=== PATIENT | male | born 1975 | race Caucasian/White ===

== ENCOUNTER 2020-05-31 10:35 | Emergency (ER) | payer OTHER ==
[~2020-05-31] VITALS: Ht 170.2 cm; Wt 77.3 kg
[2020-05-31 11:01] VITALS: BP 133/90
== END 2020-05-31 11:40 | disposition left against medical advice (07) ==
LOC: EMS 10:37
DX: R09.02 Hypoxemia (principal); T50.7X1A Poisoning by analeptics and opioid receptor antagonists, accidental (unintentional), initial encounter; Y92.89 Other specified places as the place of occurrence of the external cause
CPT/HCPCS: 93005; Z7502